=== PATIENT | female | born 1990 | race Caucasian/White ===

== ENCOUNTER 2019-11-04 17:47 | Emergency (ER) | payer SELFPAY ==
[~2019-11-04] VITALS: Ht 172.7 cm; Wt 97.5 kg
[2019-11-04 18:01] VITALS: Ht 172.7 cm; Wt 97.5 kg
[2019-11-04 19:45] VITALS: BP 118/66
== END 2019-11-04 19:45 | disposition home or self-care (01) ==
LOC: ED 17:47
DX: S82.51XA Displaced fracture of medial malleolus of right tibia, initial encounter for closed fracture (principal); V49.49XA Driver injured in collision with other motor vehicles in traffic accident, initial encounter; Y93.I9 Activity, other involving external motion; Y92.413 State road as the place of occurrence of the external cause; Y99.8 Other external cause status